=== PATIENT | male | born 1950 | race Caucasian/White ===

== ENCOUNTER → 2023-11-01 | Outpatient (CLI) | payer OTHER, SELFPAY ==
--- OUTSIDE RECORDS SUMMARY | 2023-11-01 10:00 | XMS RPT_ITS | CCD ---
Author Name Unknown Address [address] [place] [address] Organization [facility] Care Team Providers Care Denial Management Representative Name Role Phone February DALTON Julia Mejia Primary Care Provider Medications Current Medications Medication Drug Class(es) Dates Sig (Normalized) Sig (Original) dapagliflozin 10 mg oral tablet (1 source) Sodium-Glucose Cotransporter 2 Inhibitor End: 02-23-2023 take 1 tablet by mouth once daily at breakfast dapagliflozin (FARXIGA) 10 mg tablet Take by mouth daily with breakfast. 0 02/23/2023 Discontinued Completed/Discontinued Medications Medication Drug Class(es) Dates Sig (Normalized) Sig (Original) aspirin 81 mg chewable tablet (1 source) Platelet Aggregation Inhibitor, Nonsteroidal Anti-inflammatory Drug take 1 tablet by mouth once daily aspirin 81 mg chewable tablet Take 81 mg by mouth once daily. 0 Active Problems Active Problems Problem Classification Problem Date Documented Da te Episodic/Chronic Diabetes mellitus with complications (1 source) Neuropathy due to type 2 diabetes mellitus; Translations: [Type 2 diabetes mellitus with diabetic neuropathy, unspecified] Onset: 07-27-2018 07-27-2018 Chronic Diabetes mellitus without complication (1 source) Type 2 diabetes mellitus; Translations: [Type 2 diabetes mellitus without complications] Onset: 07-27-2018 07-27-2018 Chronic Disorders of lipid metabolism (1 source) Hyperlipidemia; Translations: [Hyperlipidemia, unspecified] Onset: 07-27-2018 07-27-2018 Chronic Essential hypertension (1 source) Hypertensive disorder; Translations: [Essential (primary) hypertension] Onset: 07-27-2018 07-27-2018 Chronic Other and ill-defined heart disease (1 source) Left ventricular hypertrophy; Translations: [Cardiomegaly] Onset: 07-28-2018 07-28-2018 Chronic Other nutritional; endocrine; and metabolic disorders (1 source) Obese class II; Translations: [Obesity, unspecified] Onset: 07-28-2018 07-28-2018 Chronic Residual codes; unclassified (1 source) Obstructive sleep apnea syndrome; Translations: [Obstructive sleep apnea (adult) (pediatric)] Chronic Past or Other Problems Problem Classification Problem Date Documented Da te Episodic/Chronic Intestinal obstruction without hernia (1 source) Small bowel obstruction; Translations: [Unspecified intestinal obstruction, unspecified as to partial versus complete obstruction] Onset: 02-19-2019 02-19-2019 Episodic Results Test Name Value Interpretation Reference Range Facil ity Encounters Encounter Date Encounter Type Care Provider Facility Start: 02-22-2023 End: 02-23-2023 Patient encounter procedure Psg [facility] Jose Alberto Work Phone: [facility] Procedures Date Procedure Procedure Detail Performing Clinician Start: 02-19-2019 Electrocardiogram Plan of Treatment Date Care Activity Detail Author Start: 10-23-2022 ADVANCE DIRECTIVE DISCUSSION ADVANCE DIRECTIVE DISCUSSION [facility] Start: 10-23-2022 DEPRESSION ASSESSMENT DEPRESSION ASS ESSMENT [facility] Start: 02-21-2020 Hepatitis B screening URINE AL BUMIN:CREATININE RATIO [facility] Start: 1998 SHINGRIX VACCINE (1 of 2) SHINGRIX V ACCINE (1 of 2) [facility] Start: 1993 COLOGUARD (FIT-DNA) COLOGUARD (FIT-D NA) [facility] Start: 1993 Colonoscopy COLONOSCOPY [facility] Start: 1993 COLORECTAL CANCER SCREENING COLORECTAL CANCER SCREENING [facility] Start: [address] COLONOGRAPHY [facility] Start: 1993 FECAL OCCULT BLOOD FECAL OCCULT BLOO D [facility] Start: 1993 SIGMOIDOSCOPY SIGMOIDOSCOPY [facility] Start: 1967 Urine microalbumin profile DTAP,TDAP ,TD (1 - Tdap) [facility] Start: 1966 ANNUAL PCP TEAM ELECTRICAL INSTRUMENTATION TECHNICIAN RICKY DISEASE VISIT ANNUAL PCP TEAM CHRONIC DISEASE VISIT [facility] Start: 1966 BP CONTROLLED (<130/80) BP CONTROLLE D (<130/80) [facility] Start: 1966 Hepatitis B surface antibody level LDL CHOLESTEROL [facility] Start: 1966 HEPATITIS C SCREENING HEPATITIS C SC RAMÓN [facility] Start: 1958 3 comp foot exam completed DIABETIC FOOT EXAM [facility] Start: 1958 Hepatitis C antibody , confirmatory test DILATED RETINAL EXAM [facility] Start: 1954 PNEUMOCOCCAL: 65+ (1 - PCV) PNEUMOCOCCAL: 65+ (1 - PCV) [facility] Start: 1953 Hemoglobin A1c/Hemoglobin.total in Blood HBA1C [facility] Payers Date Payer Category Payer Unknown MMO MMO MEDICARE SUPPLEMENT [id number] 2022-Present [phone] [address] [place] [address] Indemnity [id number] 2013 Medicare MEDICARE MEDICAR E A AND B [id number] 2013-Present [phone] [address] [address] [place] [address] Medicare [id number] Social History Date Type Detail Facility Start: 07-27-2018 Tobacco smoking stat us PAIS Never smoked tobacco [facility] Start: 07-27-2018 Tobacco use and exposure Smoke less tobacco non-user [facility] Start: 01-10-2023 Alcohol intake Current drinke r of alcohol (finding) [facility] Start: 01-10-2023 Alcohol intake [facility] Start: 07-27-2018 Alcohol Comment 5-6 beers daily [facility] Start: 1950 Sex Assigned At Not on file [facility] History of Present illness Narrative 02-23-2023 Lisaveronica Maya - 02/23/2023 3:17 AM EDT Note Date & Type Note Facility 02-23-2023 History of Presen t illness Narrative Sleep Study Check-In Documentation Date: February 23, 2023 Name: Erickson Martinbrandymariellemagdalena Patient was accompanied by Self. Location: [facility] Latex allergy: No Tape allergy: No Current medications were reviewed with the patient:Yes Sleep aid taken by patient for the sleep study: [place] of sleep aid: Not Applicable Procedure was explained to the patient and all questions were answered. PAP treatment discussed and shown to patient: Yes If PAP used enter mask info: Mask NameP10 MakeRESMED MaskTypeNasal Pillow Mask SizeLarge Chin Sharp Used No Knowledge Program (KP): KP was not completed in epic by patient and accepted Study type: Split Study-Polysomnogram with CPAP titration Adverse Event: No (If yes create a new abstract) Comments: Patient was advised to follow up with their ordering provider regarding test results Lisa Maya documented in this encounter [facility] History of Past illness Narrative 07-27-2018 Note Date & Type Note Facility documented as of this encounter (statuses as of 02/23/2023) [facility] Evaluation note Note Date & Type Note Facility documented in this encounter [facility] Summary Purpose Family History No Family History Records FoundNo Family History Records Found Advance Directives No Advanced Directives Records FoundNo Advanced Directives Records Found Procedure Findings Note HNO ID: [id number] Author: Babita Patel Service: General Surgery Author Type: Physician Type: Brief Op Note Filed: 05/21/2019 12:20 PM Note Text: BRIEF OPERATIVE / PROCEDURE NOTE LOG ID: [id number] SURGERY/PROCEDURE DATE: 05/21/2019 INCISION/PROCEDURE START TIME: 11:35 AM INCISION CLOSE/PROCEDURE END TIME: 12:08 PM SURGEON(S)/PROCEDURALIST(S) AND WOODWORKER(S): Surgeon(s) and Role: * Terrell Patel - Primary * Briana (Jaya) Александр - Resident - Assisting No Additional Staff PROCEDURE(S): Colonoscopy ANESTHESIA: Monitored Anesthesia Care FINDINGS: normal ESTIMATED BLOOD LOSS: None SPECIMENS: * No specimens in log * COMPLICATIONS: None PRE-OP/PRE-PROCEDURE DIAGNOSIS: Screening colonoscopy POST-OP/POST-PROCEDURE DIAGNOSIS: Encounter for screening colonoscopy [Z12.11] SIGNATURE: Terrell Patel MD PATIENT NAME: Erickson Campuzano DATE: May 21, 2019 TIME: 12:19 PM PAGER/CONTACT #: Note HNO ID: [id number] Author: Babita Maier Amanda Service: General Surgery Author Type: Physician Type: Discharge Summary Filed: 10/29/2019 11:23 AM Note Text: DISCHARGE SUMMARY PATIENT NAME: Erickson Campuzano ADMISSION DATE: 02/19/2019 DISCHARGE DATE: 02/23/2019 ATTENDING PHYSICIAN: Terrell Patel Code Status: Not on file Highest Readmission Risk Score: 18 The 30 day readmissions risk score is derived from an internally validated risk model which evaluates patient level characteristics, utilization history, medication orders and lab results up until the day of discharge. Patients with a score of 40 or above are considered highest risk for readmission. Specific patient level drivers will be listed at the bottom of the summary. REASON FOR HOSPITALIZATION: Small Bowel Obstruction DIAGNOSIS: Small Bowel obstruction OPERATIONS DURING HOSPITALIZATION: None PROCEDURES DURING HOSPITALIZATION: No procedures performed HOSPITAL COURSE: Presented for a bowel obstruction, and (more content not included)... Hospital Course Note HNO ID: [id number] Author: Babita Maier Amanda Service: General Surgery Author Type: Physician Type: Discharge Summary Filed: 10/29/2019 11:23 AM Note Text: DISCHARGE SUMMARY PATIENT NAME: Erickson Campuzano ADMISSION DATE: 02/19/2019 DISCHARGE DATE: 02/23/2019 ATTENDING PHYSICIAN: Terrell Patel Code Status: Not on file Highest Readmission Risk Score: 18 The 30 day readmissions risk score is derived from an internally validated risk model which evaluates patient level characteristics, utilization history, medication orders and lab results up until the day of discharge. Patients with a score of 40 or above are considered highest risk for readmission. Specific patient level drivers will be listed at the bottom of the summary. REASON FOR HOSPITALIZATION: Small Bowel Obstruction DIAGNOSIS: Small Bowel obstruction OPERATIONS DURING HOSPITALIZATION: None PROCEDURES DURING HOSPITALIZATION: No procedures performed HOSPITAL COURSE: Presented for a bowel obstruction, and (more content not included)... Additional Source Comments (unrecognized sect ion and content) No Status Records FoundNo Status Records Found INFORMATION SOURCE (unrecogn ized section and content) DATE CREATED AUTHOR AUTHOR'S BUZZ MCKEON 10/29/2019 [facility] Source Comments (unrecognize d section and content) In the event this informatio n is protected by the Federal Confidentiality of Alcohol and Drug Abuse Patient Records regulations: The Federal rules restrict any use of the information to criminally investigate or prosecute any alcohol or drug abuse patient.[facility] Care Teams (unrecognized sec tion and content) FOR RECORDS PERTAINING TO PATIENTS WHO ARE OR HAVE BEEN ENROLLED IN A CHEMICAL DEPENDENCY/SUBSTANCEABUSE PROGRAM, SOME INFORMATION MAY BE OMITTED. This clinical summary was aggregated from multiple sources. Caution should be exercised in using it in the provision of clinical care. This summary normalizes information from multiple sources, and as a consequence, information in this document may materially change the coding, format and clinical context of patient data. In addition, data may be omitted in some cases. CLINICAL DECISIONS SHOULD BE BASED ON THE PRIMARY CLINICAL RECORDS. [facility]. provides no warranty or guarantee of the accuracy or completeness of information in this document.
[2023-11-01 10:17] LABS: AST(SGOT) 21 U/L (15-37); Alanine Aminotransfer ALT/SGPT 36 U/L (16-61); Albumin, Serum 4.2 g/dL (3.2-5.0); Alkaline Phosphatase 46 U/L (45-117); Anion Gap 4 (5-15); BUN 24 mg/dL (7-18); BUN/Creat Ratio 24.1 RATIO (10-20); Calcium,Total 10.6 mg/dL (8.5-10.1); Chloride 100 mmol/L (98-107); EST Glomerular Filtration Rate 78 mL/min (>60); Est Glom Filt Rate - Afr Amer 94 mL/min (>60); Glucose 131 mg/dL (74-106); Potassium 4.1 mmol/L (3.5-5.1); Protein, Total 8.2 g/dL (6.4-8.2); Sodium Level 133 mmol/L (136-145)
[2023-11-01 10:22] LABS: Color, Urine Yellow (Yellow); Glucose, Dipstick Normal (Normal); Ketone-Dipstick Negative (Negative); Leukocyte Esterase-Dipstick Negative /ul (Negative); Nitrite-Dipstick Negative (Negative); Occult Blood-Urine Negative /ul (Negative); Protein-Dipstick Negative (Negative); Urine Bilirubin Dipstick Negative (Negative); Urine Clarity Clear (Clear); Urine Urobilinogen Normal (Normal); Urine pH 6.5 (5.0 - 8.0)
== END | disposition home or self-care (01) ==
PROVIDERS: PCP Family Medicine; Referring Provider Chiropractor; Visit Provider Chiropractor
DX: E11.9 Type 2 diabetes mellitus without complications (principal)
CPT/HCPCS: 36415; 80053; 81002